=== PATIENT | male | born 1950 | race Caucasian/White ===

== ENCOUNTER 2017-07-03 16:25 | Emergency (ER) | payer OTHER ==
[~2017-07-03] VITALS: Ht 177.8 cm; Wt 74.0 kg
[2017-07-03] MEDS ORDERED: DIVA500T1 PO (17:02)
[2017-07-03] MEDS ORDERED: SENN-72 PO (17:02)
[2017-07-03] MEDS ORDERED: TRAZ-286 PO (17:02)
[2017-07-03] MEDS ORDERED: POLY17PD46 PO (17:02)
[2017-07-03] MEDS ORDERED: TEMA15CA24 PO (17:02)
[2017-07-03] MEDS ORDERED: CLOZ100T PO (17:02)
[2017-07-03] MEDS ORDERED: DOCU-299 PO (17:02)
--- NOTE | 2017-07-03 17:02 | NUR ---
PT WILL NOT REMAIN STILL FOR B/P
--- NOTE | 2017-07-03 17:20 | NUR ---
patient is a 67 year-old male who was brought in by caregiver due to bilateral foot swelling. patient states " My foot is swollen." respirations are even and unlabored. per caregiver no episode of cough, dysnpea, n,v,d, fever or chills. observed swelling to bilateral feet. right foot greater in size than left. tender when palpated. per caregiver, noted patient to have pain when ambulating. will continue to monitor. awaiting md er evaluation.
--- NOTE | 2017-07-03 17:38 | NUR ---
Dr. Ruiz at bedside for assessment.
[2017-07-03] MEDS ORDERED: FUROSEMIDE 20 MG/2 ML VIAL IVP ONE (18:10)
[2017-07-03 19:12] LABS: BASOPHILS # (AUTO) 0.5 K/uL (0.00-0.22); HEMATOCRIT 33.3 % (36-52); HEMOGLOBIN 11.1 g/dL (12.0-18.0); LYMPHOCYTES # (AUTO) 1.2 K/uL (2.0-11.5); MEAN CORPUSCULAR HEMOGLOBIN 31 pg (27-31); MEAN CORPUSCULAR HGB CONC 33 g/dL (33-37); MEAN CORPUSCULAR VOLUME 94 fL (80-94); MONOCYTES # (AUTO) 0.9 K/uL (0.8-1.0); NEUTROPHILS # (AUTO) 5.2 K/uL (1.8-7.7); PLATELET COUNT (AUTO) 252 K/uL (140-450); RED BLOOD CELL COUNT(AUTO) 3.53 MIL/uL (4.20-6.10); RED CELL DISTRIBUTION WIDTH 14.3 % (11.6-13.7); WHITE BLOOD COUNT (AUTO) 7.8 K/uL (4.8-10.8)
--- NOTE | 2017-07-03 19:20 | NUR ---
order taken from Miri FERRARI
[2017-07-03 19:43] LABS: ANION GAP 11.5 (8-16); CARBON DIOXIDE 28.7 mmol/L (21-32); POTASSIUM 3.2 mmol/L (3.5-5.1)
[2017-07-03 19:44] LABS: TOTAL BILIRUBIN 0.5 mg/dL (0.0-1.0)
[2017-07-03 20:48] LABS: CREATININE 0.7 mg/dL (0.7-1.3)
[2017-07-03 20:49] LABS: ALBUMIN 2.4 g/dL (3.4-5.0)
[2017-07-03 21:12] VITALS: BP 123/84
--- NOTE | 2017-07-03 21:12 | NUR ---
Patient discharged with v/s stable. Written and verbal after care instructions given and explained. Patient alert, oriented and verbalized understanding of instructions. Ambulatory with steady gait. All questions addressed prior to discharge. ID band removed. Patient advised to follow up with PMD. Rx of zithromax, albuterol, and hydrochlorothiazide given. Patient educated on indication of medication including possible reaction and side effects. Opportunity to ask questions provided and answered.
== END 2017-07-03 21:12 | disposition home or self-care (01) ==
LOC: MED 16:25
DX: J20.9 Acute bronchitis, unspecified (principal); J42 Unspecified chronic bronchitis; R60.0 Localized edema; I50.9 Heart failure, unspecified; J44.9 Chronic obstructive pulmonary disease, unspecified; F20.9 Schizophrenia, unspecified; Z79.899 Other long term (current) drug therapy
CPT/HCPCS: 36415; 71045; 80053; 84484; 85025; 85379; 93970; 96374; 99285; J1940; Q0092

== ENCOUNTER 2020-02-09 20:47 | Emergency (ER) | payer MEDICAID, OTHER ==
[~2020-02-09] VITALS: Ht 188 cm; Wt 81.6 kg
[2020-02-09 20:47] VITALS: BP 110/77
[~2020-02-09 20:47] MED LIST: CLOZ100T PO; DIVA500T1 PO; DOCU-299 PO; POLY17PD46 PO; SENN-72 PO; TEMA15CA24 PO; TRAZ-343 PO
--- NOTE | 2020-02-09 20:51 | NUR ---
biba to bed 01
--- NOTE | 2020-02-09 20:52 | NUR ---
Dr. Mart assessing pt.
[2020-02-09 20:55] VITALS: BP 112/76
--- NOTE | 2020-02-09 20:56 | NUR ---
70 year old male coming in from [facility] for self report of mechanical fall x 1.5 hours. no obvious hematoma noted on the head. pt is a/o x4, PERRLA. pt unable to follow commands and only replies with yes/no. no other s/sx noted. pmhx: tobacco use, paranoia, shcizophrenia nka
--- NOTE | 2020-02-09 21:17 | NUR ---
pt taken to ct via [facility]
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
--- NOTE | 2020-02-09 21:38 | NUR ---
POC: [facility] [id number]--- spoke with TIERRA Grimm and stated that web site administrator will pickup pt. stated will give ER a call back for notice.
--- NOTE | 2020-02-09 21:43 | NUR ---
spoke with Farideh from [facility]. stated Gilda, business support administrator, will come product picker pt in 20 minutes.
--- NOTE | 2020-02-09 21:59 | NUR ---
pt urinated all over floor in bed 01
--- NOTE | 2020-02-09 22:10 | NUR ---
Patient discharged with v/s stable. Written and verbal after care instructions given and explained. Patient verbalized understanding. Ambulatory with steady gait. All questions addressed prior to discharge. Advised to follow up with PMD.
== END 2020-02-09 22:10 | disposition home or self-care (01) ==
LOC: MED 20:47
DX: S09.90XA Unspecified injury of head, initial encounter (principal); J44.9 Chronic obstructive pulmonary disease, unspecified; I11.0 Hypertensive heart disease with heart failure; Z79.899 Other long term (current) drug therapy; W18.39XA Other fall on same level, initial encounter; Y93.89 Activity, other specified; Y92.89 Other specified places as the place of occurrence of the external cause; Y99.8 Other external cause status
CPT/HCPCS: 99283